=== PATIENT | male | born 1990 | race Caucasian/White ===

== ENCOUNTER 2023-10-26 13:45 | Emergency (ER) | payer OTHER, SELFPAY ==
[2023-10-26 13:58] VITALS: BP 182/112; PULSE 105; O2SAT 98
[2023-10-26 14:16] VITALS: BP 171/102; PULSE 108; RESP 20; TEMP 39.5; O2SAT 96; BMI 53.0
--- NOTE | 2023-10-26 14:28 | ED.GENADULT ---
HPI - General Adult General Chief complaint: Fever Stated complaint: VOMITING FOR DAYS PER EMS Time Seen by Provider: 10/26/23 19:02 Source: patient Mode of arrival: ambulatory Limitations: no limitations History of Present Illness HPI narrative: 33 yold male presents to the ED for fever, nausea, vomtting, and coughing. patient also states without Blood pressure meds for 4 days. Patient has been without Clonidine 0.1mg per day. patient states no chest pain or shortness of breath. Related Data Previous Rx's Medication Instructions Recorded clonidine HCl 0.1 mg tablet 0.1 mg PO DAILY 7 days #7 tabs 10/26/23 oseltamivir 75 mg capsule (Tamiflu) 75 mg PO BID 5 days #10 caps 10/26/23 Allergies Allergy/AdvReac Type Severity Reaction Status Date / Time morphine [MORPHINE] AdvReac Unknown NAUSEA/THROAT Verified 10/26/23 14:20 SWELLING PMFSH Social History Social History Alcohol intake: never Smoked in Last 30 Days: Yes Use of substances other than those prescribed or required for medical reasons: No Any prior treatment program specific to substance use: No Advance Directives: No Advance Directives Information Provided: No Physical Exam ED Vital Signs: Vital Signs - 24 hr 10/26/23 14:16 10/26/23 17:40 10/26/23 19:05 Temperature 103.1 F H 102.5 F H 99.6 F Pulse Rate 108 H 105 H 98 Respiratory Rate 20 20 18 Blood Pressure 171/102 H 174/104 H 169/105 H Pulse Oximetry 96 94 96 Oxygen Delivery Method Room Air Room Air Room Air BMI result Body Mass Index 53.0 Const General: cooperative, healthy appearing, comfortable, no acute distress, well developed, alert, awake and Physically active Orientation/consciousness: oriented to person, oriented to place, oriented to time and patient oriented x3 HENMT Head: Yes normal to inspection, Yes No palpable skull fracture present, Yes normocephalic and Yes atraumatic Ears: hearing grossly normal bilaterally, external ears normal, TM's normal bilaterally, TM normal on the right, TM normal on the left, EAC's normal, mastoids normal and no periauricular adenopathy Eyes General: appearance normal, both eyes and all related structures Neck Neck: Yes normal visual inspection, Yes full ROM, Yes no lymphadenopathy, Yes no meningeal signs, Yes trachea midline, Yes supple, No anterior neck swelling and No tender Chest Chest palpation & inspection: normal inspection of the chest and normal palpation of entire chest wall Resp Effort & Inspection: normal respiratory effort and able to speak in complete sentences Auscultation: clear to auscultation bilaterally Cardio Jugular venous distension: no JVD Heart sounds: S1 normal heart sound present and S2 normal heart sound present GI Inspection: Yes normal to inspection Palpation (GI): Soft to palpation, not firm, nontender, no guarding and not rigid General: Yes no CVA tenderness Back/Spine/Pelvis Back: no CVA tenderness and No back tenderness Skin General skin exam: no rashes or lesions noted, elasticity normal and turgor normal Neuro General: oriented to person, oriented to place, oriented to time, patient oriented x3, gait normal, tone normal, moves all extremities, Normal light touch and pain sensation, no meningeal signs and no focal motor deficits Extrem General: Yes normal to inspection, Yes full ROM and Yes capillary refill normal Psych Appearance: grossly normal, well kempt and not disheveled Course Course Course Narrative: RME: 33 yold presents to the ED for fever, coughing, and body aches. Patient states new rash on face, but no rash elsewhere on the body. Patient denies any neck stiffness or photophobia. No one at home sick. Patient denies any recent hospital admission or new antibiotics. Skin negative feeling. Labs chest x-ray UA ordered. SARS ordered. Rash is not cellulitic, but look petechiae. Patient to be brought into the ED due to vitals Medications Administered Discontinued Medications Generic Name Dose Route Start Last Admin Trade Name Zack PRN Reason Stop Dose Admin Acetaminophen 975 mg 10/26/23 14:25 10/26/23 15:17 Acetaminophen 325 Mg Tablet PO 10/26/23 14:26 975 mg ONCE ONE Administration Ibuprofen 800 mg 10/26/23 17:46 10/26/23 17:48 Ibuprofen 800 Mg Tablet PO 10/26/23 17:47 800 mg ONCE ONE Administration Ondansetron HCl 4 mg 10/26/23 14:24 10/26/23 14:30 Ondansetron Odt 4 Mg Tab.Rapdis TRANSLINGU 10/26/23 14:25 4 mg ONCE ONE Administration Medical Decision Making Medical Decision Making MDM Narrative: 33 yold male this ED for fever, cough, vomitting and nausea since yesterday. Patient also states being without his hypertensive medication for 4 days. Patient states no chest pain or shortness of breath. Patient positive COVID. Vital signs improved. Patient discharged with Tamiflu and clonidine which he takes. Face has Viral rash. Patient explained worrisome signs. Differential Diagnosis Differential Diagnoses: The differential diagnosis associated with the presentation includes Admission/Observation Consideration of admission/observation: Escalation of care including admission/observation considered Lab Data [facility] Lab Attestation statement: I reviewed the patient's lab results. 10/26/23 16:18 10/26/23 16:18 Labs: Lab Results 10/26/23 Range/Units 16:18 WBC 7.6 (4.8-10.8) X10*3/uL RBC 5.30 (4.60-5.80) X10*6/uL Hgb 16.2 (14.0-18.0) g/dl Hct 46.4 (42.0-52.0) % MCV 87.5 (80.0-98.0) fL MCH 30.6 (27.0-33.0) pg MCHC 34.9 (31.0-36.0) g/dl RDW 12.4 (11.0-16.0) % Plt Count 120 L (160-400) X10*3/uL MPV 11.0 (9.4-12.4) fL Immature Gran % (Auto) 0.3 (0.0-0.4) % Neut % (Auto) 86.2 H (45-73) % Lymph % (Auto) 7.5 L (20-40) % Taylor % (Auto) 5.9 (2-11) % Eos % (Auto) 0.0 (0-4) % Baso % (Auto) 0.1 (0-2) % Lymph # (Auto) 0.6 L (1.2-4.9) X10*3/uL Taylor # (Auto) 0.5 (0.1-1.2) X10*3/uL Eos # (Auto) 0.0 (0.0-0.4) X10*3/uL Baso # (Auto) 0.0 (0.0-0.2) X10*3/uL Abs Immat Gran (auto) 0.02 (0.00-0.03) X10*3/uL Absolute Neuts (auto) 6.6 (2.0-8.3) x10*3/uL Absolute Nucleated RBC 0.000 (0.0-0.012) X10*3/uL Nucleated RBC % (auto) 0.0 (0.0-0.2) /100WBC PT 14.2 H (11.1-13.3) SEC INR 1.2 H (0.9-1.1) APTT 42.1 H (26.0-36.4) SEC Sodium 136 (135-145) mmol/L Potassium 3.4 (3.3-5.1) mmol/L Chloride 101 (96-108) mmol/L Carbon Dioxide 24 (22-29) mmol/L Anion Gap 14 (12-20) BUN 7 L (9-16) mg/dL Creatinine 0.82 (0.5-1.4) mg/dL Estim Creat Clear Calc 206.8 Estimated GFR > 60 Random Glucose 111 (60-115) mg/dL Lactic Acid 0.9 (0.5-2.0) mmol/L Calcium 8.9 (8.4-10.2) mg/dL Total Bilirubin 0.6 (0.0-1.0) mg/dL AST 62 H (5-37) U/L ALT 70 H (0-40) U/L Alkaline Phosphatase 55 (39-117) U/L Total Protein 7.5 (6.5-8.0) g/dL Albumin 4.0 (3.5-5.0) g/dL Influenza Type A (PCR) POSITIVE A (Negative) Influenza Type B (PCR) NEGATIVE (Negative) RSV RNA Qual (PCR) NEGATIVE (Negative) SARS-CoV-2 RNA (RT-PCR) NEGATIVE (Negative) Independent Interpretation I performed an independent interpretation of an: EKG and Plain X-Ray Radiology Impression Discussion of test interpretation with radiology: I have reviewed the radiologist's reading. Prescription Management I considered prescription management with: Other (tamiflu) Discharge Plan Discharge Clinical Impression: Influenza, Hypertension, Medication refill Patient Disposition: Home, Self-Care Instructions: Influenza (ED), Medicine Refill (ED), Hypertension in the Older Adult (ED) Additional Instructions: Please follow-up with your primary care provider. Return to the ED immediately for any shortness of breath, chest pain, coughing up blood, weakness, dizziness, slurred speech, facial droop, paralysis of extremities, or any other concerning symptoms. Prescriptions: New oseltamivir [Tamiflu] 75 mg capsule 75 mg PO BID 5 Days Qty: 10 0RF clonidine HCl 0.1 mg tablet 0.1 mg PO DAILY 7 Days Qty: 7 0RF Stand Alone Forms: Work/School Release Interventions: ED Discharge Assessment Last Done: 10/26/23 19:17 Discharge Date/Time: 10/26/23 19:18 Print Language: Frisian
[2023-10-26 17:40] VITALS: BP 174/104; PULSE 105; RESP 20; TEMP 39.2; O2SAT 94
[2023-10-26 19:05] VITALS: BP 169/105; PULSE 98; RESP 18; TEMP 37.6; O2SAT 96
== END 2023-10-26 19:18 | disposition home or self-care (01) ==
PROVIDERS: Emergency Provider Emergency Medicine
DX: J10.1 Influenza due to other identified influenza virus with other respiratory manifestations (principal); I10 Essential (primary) hypertension; Z76.0 Encounter for issue of repeat prescription; R79.1 Abnormal coagulation profile; Z11.52 Encounter for screening for COVID-19; R50.9 Fever, unspecified; R11.2 Nausea with vomiting, unspecified; R21 Rash and other nonspecific skin eruption
CPT/HCPCS: 0241U; 36415; 71046; 80053; 83605; 85025; 85610; 85730; 87040; 99283; 99284

== ENCOUNTER 2025-02-26 16:14 | Emergency (ER) | payer OTHER, SELFPAY ==
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
[2025-02-26 16:24] VITALS: BP 144/92; BP 198/118; PULSE 84; PULSE 98; RESP 18; TEMP 36.2; O2SAT 97; O2SAT 98; BMI 34.1
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
[2025-02-26] MEDS: oxyCODONE HCl Immed Release 5 MG TABLET PO (19:36)
[2025-02-26] MEDS: Lidocaine HCl 1 % MPF 5 ML VIAL 10 ML INFILTRATI (19:36)
[2025-02-26] MEDS: Diphth,Pertus(ACell),Tet Adult 0.5 ML SYRINGE IM (19:37)
[2025-02-26 20:52] VITALS: BP 144/92; PULSE 84; RESP 18; TEMP 36.2; O2SAT 98
== END 2025-02-26 20:53 | disposition home or self-care (01) ==
PROVIDERS: Emergency Provider Emergency Medicine
DX: S01.511A Laceration without foreign body of lip, initial encounter (principal); R51.9 Headache, unspecified; V19.9XXA Pedal cyclist (driver) (passenger) injured in unspecified traffic accident, initial encounter; Y93.9 Activity, unspecified; Y92.9 Unspecified place or not applicable; Y99.8 Other external cause status
CPT/HCPCS: 12011; 70450; 72125; 90471; 90715; 99283; 99284; J2003

== ENCOUNTER → 2025-02-26 16:32 | Outpatient (BNV) | payer OTHER, SELFPAY | PROVIDERS: Visit Provider Radiology Diagnostic Radiology | DX: M54.2 Cervicalgia (principal); S09.90XA Unspecified injury of head, initial encounter; W19.XXXA Unspecified fall, initial encounter | CPT/HCPCS: 70450; 72125 ==